=== PATIENT | male | born 1965 | race Caucasian/White ===

== ENCOUNTER 2017-02-14 12:50 | Emergency (ER) | payer MEDICARE, MEDICAID ==
[2017-02-14 12:51] VITALS: BMI 25.7
[2017-02-14 13:00] VITALS: TEMP 97.9; O2SAT 99
[2017-02-14] MEDS ORDERED: Oxycodone/Acetaminophen 5/325 mg Tab PO STA (13:09)
[2017-02-14] MEDS ORDERED: Oxycodone/Acetaminophen 5/325 mg Tab ONE (13:13)
--- NOTE | 2017-02-14 13:24 | C.PDOC ---
History Of Present Illness 51 yr old male with PMHx of HTN, presents to the ER with complain pain and swelling to the left shoulder, after slipping and falling at home 2 days ago. Patient states he took Tylenol 1 time with no relief. Patient states he is unable to move arm without pain. Denies LOC, chest pain, back pain, arm pain, weakness or numbness. Time Seen by Provider: 02/14/17 13:06 Chief Complaint (Nursing): Upper Extremity Problem/Injury History Per: Patient History/Exam Limitations: no limitations Onset/Duration Of Symptoms: Days (2 days ago) Past Medical History Reviewed: Historical Data, Nursing Documentation, Vital Signs Vital Signs: Last Vital Signs Temp 97.9 F 02/14/17 12:59 Pulse 105 H 02/14/17 14:04 Resp 12 02/14/17 14:04 BP 114/81 02/14/17 14:04 Pulse Ox 99 02/14/17 14:05 - Medical History PMH: HTN - [facility] Procedures ALCOHOL DETOXIFICATION (06/15/13) BONE MARROW BIOPSY (06/15/13) CLOSURE SKIN & SUBCUTANEOUS NEC (03/23/14) FUSION/REFUS OF 2-3 VERTEBRAE (06/15/13) OTH CERVICAL FUSION OF POSTERIOR COLUMN, POSTERIOR TECHNIQUE (06/15/13) TETANUS TOXOID ADMINIST (03/23/14) VERTEBRAL FX REPAIR (06/15/13) Family History: States: No Known Family Hx - Social History Hx Tobacco Use: Yes (heavy smoker) Hx Alcohol Use: Yes Hx Substance Use: No - Immunization History Hx Tetanus Toxoid Vaccination: No Hx Influenza Vaccination: No Hx Pneumococcal Vaccination: No Review Of Systems Except As Marked, All Systems Reviewed And Found Negative. Cardiovascular: Negative for: Chest Pain Musculoskeletal: Positive for: Shoulder Pain (Left shoulder pain and swelling ) . Negative for: Arm Pain, Back Pain Neurological: Negative for: Weakness, Numbness Physical Exam - Physical Exam Appears: Well, Non-toxic, No Acute Distress Skin: Warm, Dry, No Rash Head: Atraumatic, Normacephalic Chest: Symmetrical, No Tenderness Cardiovascular: Rhythm Regular, No Murmur Respiratory: Normal Breath Sounds, No Rales, No Rhonchi, No Stridor, No Wheezing Extremity: Tenderness (Left shoulder, tenderness to the anterior and lateral shoulder. Tenderness to the distal clavicle. ), Capillary Refill (<2), Swelling (Left shoulder, moderate swelling. ), Other (Left Shoulder - Unable to abduct arm, secondary to pain. ) Pulses: Left Radial: Normal, Right Radial: Normal Neurological/Psych: Oriented x3, Normal Speech, Normal Motor ED Course And Treatment O2 Sat by Pulse Oximetry: 99 - Other Rad X-Ray - Left Clavicle X-Ray: Viewed By Me, Read By Radiologist Interpretation: PROCEDURE: Radiographs of the left clavicle. HISTORY: pain s.p fall. COMPARISON: None. FINDINGS: LEFT CLAVICLE: There is no clavicular fracture identified. There is comminuted fracture of the left humeral head and neck. Please see report of left shoulder radiograph. JOINTS: The acromioclavicular joint is preserved. There is inferior subluxation at the glenohumeral articulation without evidence of ward dislocation. SOFT TISSUES: Grossly unremarkable. OTHER FINDINGS: None. IMPRESSION: No clavicular fracture. Comminuted fracture left humeral neck and head. Please see report of left shoulder radiograph. X-Ray - Left Shoulder X-Ray: Viewed By Me, Read By Radiologist Interpretation: PROCEDURE: Radiographs of the Left Shoulder. HISTORY: pain s.p fall. COMPARISON: No prior. FINDINGS: BONES: Comminuted transverse subcapital fracture and humeral head, proximal left humerus. No significant displacement. There is some impaction. JOINTS: Inferior subluxation of the humeral head at the glenohumeral articulation without evidence of ward dislocation. SOFT TISSUES: Normal. OTHER FINDINGS: None. IMPRESSION: Comminuted fracture left humeral neck and head with impaction N no significant displacement. Inferior subluxation of left glenohumeral articulation. Medical Decision Making Medical Decision Making: PLAN: * X-Ray - Left Clavicle, Left Shoulder * Percocet PO Progress: Page Dr Bedoya, ortho salmon gillnet vessel operator at [id number] Bedoay calls back and requests contacting MYRON Crump to evaluate patient. He also requests sending images via text. Obtain patient permission and send images 1955 MYRON Crump is in the OR and unable to see patient at this time. [id number] Dr Bedoya requests to have patient put in a sling and discharged home and to follow up in his office tomorrow. Patient placed in arm sling. I explained Xray results and gave instructions on prompt follow up with ortho tomorrow. Patient verbalized understanding. Disposition Counseled Patient/Family Regarding: Need For Followup, Rx Given - Disposition Referrals: Andi Bedoya III, MD [Staff Provider] - [facility] [Outside] [facility] [Outside] Disposition: HOME/ ROUTINE Disposition Time: 13:52 Condition: STABLE Additional Instructions: [place] radiografa muestra fractura al hombro mike Es muy importante que sigas maana en la oficina del ortopedista Dr. Bedoya Mantenga la honda en el b[place] medicamentos para el dolor cuando sea necesario Prescriptions: oxyCODONE/Acetaminophen [Percocet 5/325 mg Tab] 1 tab PO Q6 #20 tab Instructions: Arm Fracture in Adults (ED) - POA Present On Arrival: None - Clinical Impression Clinical Impression: Fracture of humeral head, closed - PA / PRODUCT FINISHER / Resident Statement MD/DO has reviewed & agrees with the documentation as recorded. - Scribe Statement The provider has reviewed the documentation as recorded by the Scribe Janet Kirk All medical record entries made by the Scribe were at my direction and personally dictated by me. I have reviewed the chart and agree that the record accurately reflects my personal performance of the history, physical exam, medical decision making, and the department course for this patient. I have also personally directed, reviewed, and agree with the discharge instructions and disposition.
--- NOTE | 2017-02-14 14:00 | RAD ---
PROCEDURE: Radiographs of the left clavicle. HISTORY: pain s.p fall COMPARISON: None. FINDINGS: LEFT CLAVICLE: There is no clavicular fracture identified. There is comminuted fracture of the left humeral head and neck. Please see report of left shoulder radiograph. JOINTS: The acromioclavicular joint is preserved. There is inferior subluxation at the glenohumeral articulation without evidence of ward dislocation. SOFT TISSUES: Grossly unremarkable. OTHER FINDINGS: None. IMPRESSION: No clavicular fracture. Comminuted fracture left humeral neck and head. Please see report of left shoulder radiograph.
--- NOTE | 2017-02-14 14:01 | RAD ---
PROCEDURE: Radiographs of the Left Shoulder HISTORY: pain s.p fall COMPARISON: No prior. FINDINGS: BONES: Comminuted transverse subcapital fracture and humeral head, proximal left humerus. No significant displacement. There is some impaction. JOINTS: Inferior subluxation of the humeral head at the glenohumeral articulation without evidence of ward dislocation. SOFT TISSUES: Normal. OTHER FINDINGS: None. IMPRESSION: Comminuted fracture left humeral neck and head with impaction N no significant displacement. Inferior subluxation of left glenohumeral articulation.
[2017-02-14 14:06] VITALS: BP 114/81; PULSE 105; RESP 12
== END 2017-02-14 14:05 | disposition home or self-care (01) ==
LOC: C.ER 12:50
DX: S42.292A Other displaced fracture of upper end of left humerus, initial encounter for closed fracture (principal); W01.0XXA Fall on same level from slipping, tripping and stumbling without subsequent striking against object, initial encounter; Y92.009 Unspecified place in unspecified non-institutional (private) residence as the place of occurrence of the external cause; I10 Essential (primary) hypertension; F17.210 Nicotine dependence, cigarettes, uncomplicated

== ENCOUNTER 2017-09-23 22:20 | Emergency (ER) | payer OTHER, MEDICAID ==
[2017-09-23 22:20] VITALS: BMI 25.7
[2017-09-23 22:45] VITALS: RESP 20; O2SAT 97
--- NOTE | 2017-09-24 00:34 | C.PDOC ---
History Of Present Illness 52 year old male well known to the ER presents after drinking an unspecified amount of rum, complaining of back and neck pain. Patient denies not specify any fall or injury but does have a Hx of chronic neck and back issues and prior surgery to cervical spine. Patient is intoxicated and is unable to offer further Hx. Denies fever, SOB, abdominal pain, nausea, or vomiting. Chief Complaint (Nursing): Substance Abuse History Per: Patient History/Exam Limitations: no limitations Onset/Duration Of Symptoms: Hrs Current Symptoms Are (Timing): Still Present Suicide/Self Injury Attempted (Context): None Modifying Factor(s): Alcohol Associated Symptoms: denies: Depression, Suicidal Thoughts, Suicidal Plan Recent travel outside of the [place]: No Past Medical History Reviewed: Historical Data, Nursing Documentation, Vital Signs Vital Signs: Last Vital Signs Temp 98.1 F 09/24/17 03:04 Pulse 96 H 09/24/17 03:04 Resp 20 09/24/17 03:04 BP 105/63 09/24/17 03:04 Pulse Ox 97 09/24/17 06:00 - Medical History PMH: HTN - [facility] Procedures ALCOHOL DETOXIFICATION (06/15/13) BONE MARROW BIOPSY (06/15/13) CLOSURE SKIN & SUBCUTANEOUS NEC (03/23/14) FUSION/REFUS OF 2-3 VERTEBRAE (06/15/13) OTH CERVICAL FUSION OF POSTERIOR COLUMN, POSTERIOR TECHNIQUE (06/15/13) TETANUS TOXOID ADMINIST (03/23/14) VERTEBRAL FX REPAIR (06/15/13) Family History: States: Unknown Family Hx - Social History Hx Tobacco Use: Yes (heavy smoker) Hx Alcohol Use: Yes Hx Substance Use: No - Immunization History Hx Tetanus Toxoid Vaccination: No Hx Influenza Vaccination: No Hx Pneumococcal Vaccination: No Review Of Systems Cardiovascular: Negative for: Chest Pain, Palpitations Respiratory: Negative for: Shortness of Breath Gastrointestinal: Negative for: Abdominal Pain Musculoskeletal: Positive for: Neck Pain, Back Pain Physical Exam - Physical Exam Appears: Non-toxic, Other (Awake, alert, ETOH on breath, slurred speech.) Skin: Warm, Dry Head: Normacephalic (Across left cheek, dried blood), Abrasion Eye(s): bilateral: Normal Inspection Oral Mucosa: Moist Neck: Paracervical Tenderness (Diffuse, no point tenderness), Supple, Other ( Surgical scar on c-spine noted) Chest: Symmetrical, No Tenderness Cardiovascular: Rhythm Regular Respiratory: Normal Breath Sounds, No Rales, No Rhonchi, No Wheezing Gastrointestinal/Abdominal: Soft, No Tenderness Back: No CVA Tenderness, No Vertebral Tenderness, No Paraspinal Tenderness Extremity: Normal ROM (x4), Other (Obvious injuries noted) Neurological/Psych: Oriented x3, Normal Speech, Normal Motor, Normal Sensation, Other (No focal deficits) ED Course And Treatment O2 Sat by Pulse Oximetry: 97 (Room air) Pulse Ox Interpretation: Normal - CT Scan/US CT Head Other Rad Studies (CT/US): Read By Radiologist, Radiology Report Reviewed CT/US Interpretation: EXAM: CT Head Without Intravenous Contrast. EXAM DATE/ TIME: 09/23/2017 11:10 PM. CLINICAL HISTORY: 52 years old, male; Pain; Headache and other: Pain; Patient HX: 07-02-17; Additional info: Trauma. TECHNIQUE: Axial computed tomography images of the head/brain without intravenous contrast. All CT scans at. this facility use one or more dose reduction techniques, viz.: automated exposure control; ma/kV. adjustment per patient size (including targeted exams where dose is matched to indication; i.e. head);. or iterative reconstruction technique. Coronal and sagittal reformatted images were created and reviewed. COMPARISON: CT - HEAD W/O CONTRAST 2016-05-14 00:49. FINDINGS: Brain: There is prominence of sulci gyri and ventricles. There is no midline shift. There is decreased. attenuation in periventricular white matter. There are no focal masses. There are no focal. hemorrhages. Mireles-white differentiation is visualized. Ventricles: See above. Bones: Cranial vault is intact. There are age-indeterminate nasal bone fractures. Soft tissues: There is a right frontal scalp hematoma. Sinuses: There is no acute sinusitis. Ears and mastoids: Middle ears and mastoids are unremarkable. Orbits: Orbital contents are unremarkable. IMPRESSION: Right frontal scalp hematoma, no acute intracranial abnormality; age indeterminate. nasal bone fractures CT Cervical Spine Other Rad Studies (CT/US): Read By Radiologist, Radiology Report Reviewed CT/US Interpretation: EXAM: CT Cervical Spine Without Intravenous Contrast. EXAM DATE/TIME: 09/23/2017 11:10 PM. CLINICAL HISTORY: 52 years old, male; Pain; Neck pain; Patient HX: 10. TECHNIQUE: Axial computed tomography images of the cervical spine without intravenous contrast. All CT scans. at this facility use one or more dose reduction techniques, viz.: automated exposure control; ma/kV. adjustment per patient size (including targeted exams where dose is matched to indication; i.e. head);. or iterative reconstruction technique. Coronal and sagittal reformatted images were created and reviewed. COMPARISON: CR - CERVICAL SPINE COMP W/ F E 2013-09-19 10:50. FINDINGS: Vertebrae: There is maintenance of the cervical lordosis. There is no prevertebral soft tissue. swelling. There are no fractures. There are postsurgical changes of fusion C1/C2. There is streak. artifact from metallic wires. There is fusion of the C2-C3 spinous processes. There are degenerative. changes at multiple levels with small osteophytes and disc space narrowing. Facet joints align. anatomically. Spinous processes align in the expected fashion. Discs/spinal canal/neural foramina: See above. Soft tissues: See above. Thyroid: Lung apices are clearThyroid is unremarkable. Lung apices: See above. IMPRESSION: C1-C2 fusion, no acute abnormality CT Lumbar Spine Other Rad Studies (CT/US): Read By Radiologist, Radiology Report Reviewed CT/US Interpretation: EXAM: CT Lumbar Spine Without Intravenous Contrast. EXAM DATE/TIME: 09/23/2017 11:35 PM. CLINICAL HISTORY: 52 years old, male; Pain; Low back pain. TECHNIQUE: Axial computed tomography images of the lumbar spine without intravenous contrast. All CT scans. at this facility use one or more dose reduction techniques, viz.: automated exposure control; ma/kV. adjustment per patient size (including targeted exams where dose is matched to indication; i.e. head);. or iterative reconstruction technique. Coronal and sagittal reformatted images were created and reviewed. COMPARISON: There are no prior studies for comparison. The. FINDINGS: Vertebrae: There is a mild convex left lumbar curve. There are degenerative changes greatest at the. apex of the curve L23 and L3-L4. T12-L3 vertebral bodies are normal height. There is mild endplate. deformity L4 and L5. There are no wedge compression fractures. Posterior elements are intact at all. levels. Facet joints align anatomically. Spinous processes align in the expected fashion. There is mild. disc bulge at L4-L5 and L5-S1. Sacroiliac joints are patent. Discs/spinal canal /neural foramina: see above. Soft tissues: Psoas and paraspinous muscles are symmetric. Liver: There is fatty infiltration of the liver. IMPRESSION: Degenerative change, no fracture; mild disc bulge at L4-L5 and L5-S1 Medical Decision Making Medical Decision Making: Impression: ETOH dependency, s/p fall with back and neck pain, will order CT cervical spine, CT head, and CT LS spine; if clear will discharge to sober family member. Disposition - Disposition Referrals: [facility] [Outside] Disposition: HOME/ ROUTINE Disposition Time: 06:30 Condition: GOOD Instructions: Cervical Strain (GEN), Head Injury (ED), Alcohol Dependence (ED) Forms: [employer] (Montenegrin) - Clinical Impression Clinical Impression: Alcohol intoxication, Contusion of face, Head injury - Scribe Statement The provider has reviewed the documentation as recorded by the Scribe Provider Attestation: Héctor Dorsey All medical record entries made by the Scribe were at my direction and personally dictated by me. I have reviewed the chart and agree that the record accurately reflects my personal performance of the history, physical exam, medical decision making, and the department course for this patient. I have also personally directed, reviewed, and agree with the discharge instructions and disposition.
--- NOTE | 2017-09-24 01:00 | CT ---
EXAM: CT Cervical Spine Without Intravenous Contrast EXAM DATE/TIME: 09/23/2017 11:10 PM CLINICAL HISTORY: 52 years old, male; Pain; Neck pain; Patient HX: 10-4-13 TECHNIQUE: Axial computed tomography images of the cervical spine without intravenous contrast. All CT scans at this facility use one or more dose reduction techniques, viz.: automated exposure control; ma/kV adjustment per patient size (including targeted exams where dose is matched to indication; i.e. head); or iterative reconstruction technique. Coronal and sagittal reformatted images were created and reviewed. COMPARISON: CR - CERVICAL SPINE COMP W/ F E 2013-09-19 10:50 FINDINGS: Vertebrae: There is maintenance of the cervical lordosis. There is no prevertebral soft tissue swelling. There are no fractures. There are postsurgical changes of fusion C1/C2. There is streak artifact from metallic wires. There is fusion of the C2-C3 spinous processes. There are degenerative changes at multiple levels with small osteophytes and disc space narrowing. Facet joints align anatomically. Spinous processes align in the expected fashion. Discs/spinal canal/neural foramina: See above. Soft tissues: See above. Thyroid: Lung apices are clearThyroid is unremarkable Lung apices: See above. IMPRESSION: C1-C2 fusion, no acute abnormality
--- NOTE | 2017-09-24 01:04 | CT ---
EXAM: CT Head Without Intravenous Contrast EXAM DATE/TIME: 09/23/2017 11:10 PM CLINICAL HISTORY: 52 years old, male; Pain; Headache and other: Pain; Patient HX: 07-02-17; Additional info: Trauma TECHNIQUE: Axial computed tomography images of the head/brain without intravenous contrast. All CT scans at this facility use one or more dose reduction techniques, viz.: automated exposure control; ma/kV adjustment per patient size (including targeted exams where dose is matched to indication; i.e. head); or iterative reconstruction technique. Coronal and sagittal reformatted images were created and reviewed. COMPARISON: CT - HEAD W/O CONTRAST 2016-05-14 00:49 FINDINGS: Brain: There is prominence of sulci gyri and ventricles. There is no midline shift. There is decreased attenuation in periventricular white matter. There are no focal masses. There are no focal hemorrhages. Mireles-white differentiation is visualized. Ventricles: See above. Bones: Cranial vault is intact. There are age-indeterminate nasal bone fractures. Soft tissues: There is a right frontal scalp hematoma Sinuses: There is no acute sinusitis. Ears and mastoids: Middle ears and mastoids are unremarkable. Orbits: Orbital contents are unremarkable. IMPRESSION: Right frontal scalp hematoma, no acute intracranial abnormality; age indeterminate nasal bone fractures
--- NOTE | 2017-09-24 01:12 | CT ---
EXAM: CT Lumbar Spine Without Intravenous Contrast EXAM DATE/TIME: 09/23/2017 11:35 PM CLINICAL HISTORY: 52 years old, male; Pain; Low back pain TECHNIQUE: Axial computed tomography images of the lumbar spine without intravenous contrast. All CT scans at this facility use one or more dose reduction techniques, viz.: automated exposure control; ma/kV adjustment per patient size (including targeted exams where dose is matched to indication; i.e. head); or iterative reconstruction technique. Coronal and sagittal reformatted images were created and reviewed. COMPARISON: There are no prior studies for comparison. The FINDINGS: Vertebrae: There is a mild convex left lumbar curve. There are degenerative changes greatest at the apex of the curve L23 and L3-L4. T12-L3 vertebral bodies are normal height. There is mild endplate deformity L4 and L5. There are no wedge compression fractures. Posterior elements are intact at all levels. Facet joints align anatomically. Spinous processes align in the expected fashion. There is mild disc bulge at L4-L5 and L5-S1. Sacroiliac joints are patent. Discs/spinal canal/neural foramina: see above Soft tissues: Psoas and paraspinous muscles are symmetric. Liver: There is fatty infiltration of the liver. IMPRESSION: Degenerative change, no fracture; mild disc bulge at L4-L5 and L5-S1
[2017-09-24 03:05] VITALS: TEMP 98.1
[2017-09-24 06:46] VITALS: BP 121/78; PULSE 80
== END 2017-09-24 06:25 | disposition home or self-care (01) ==
LOC: C.ER 22:20
DX: F10.129 Alcohol abuse with intoxication, unspecified (principal); S00.83XA Contusion of other part of head, initial encounter; S09.90XA Unspecified injury of head, initial encounter; X58.XXXA Exposure to other specified factors, initial encounter; I10 Essential (primary) hypertension; F17.210 Nicotine dependence, cigarettes, uncomplicated

== ENCOUNTER 2017-12-28 18:49 | Emergency (ER) | payer OTHER, MEDICAID ==
[2017-12-28 18:49] VITALS: BMI 25.7
[2017-12-28 19:05] VITALS: RESP 18
--- NOTE | 2017-12-28 20:23 | C.PDOC ---
History Of Present Illness Patient is 52 y/o male who presents to the ED with complaints of left eye and face swelling s/p falling out of bed after heavy alcohol consumption. Patient denies any visual changes, fever, chills, nausea, or vomiting; admits to drinking daily. Currently speaking in full sentences in ED. No other physical complaints at this time. Time Seen by Provider: 12/28/17 20:23 Chief Complaint (Nursing): Trauma History Per: Patient History/Exam Limitations: no limitations Onset/Duration Of Symptoms: Hrs Current Symptoms Are (Timing): Still Present Severity: Mild Pain Scale Rating Of: 4 Recent travel outside of the [place]: No Past Medical History Reviewed: Historical Data, Nursing Documentation, Vital Signs Vital Signs: Last Vital Signs Temp 99.1 F 12/28/17 22:08 Pulse 100 H 12/28/17 22:08 Resp 18 12/28/17 22:08 BP 114/79 12/28/17 22:08 Pulse Ox 97 12/28/17 22:08 - Medical History PMH: HTN Denies: Chronic Kidney Disease Surgical History: No Surg Hx - [facility] Procedures ALCOHOL DETOXIFICATION (06/15/13) BONE MARROW BIOPSY (06/15/13) CLOSURE SKIN & SUBCUTANEOUS NEC (03/23/14) FUSION/REFUS OF 2-3 VERTEBRAE (06/15/13) OTH CERVICAL FUSION OF POSTERIOR COLUMN, POSTERIOR TECHNIQUE (06/15/13) TETANUS TOXOID ADMINIST (03/23/14) VERTEBRAL FX REPAIR (06/15/13) Family History: States: No Known Family Hx - Social History Hx Tobacco Use: Yes (heavy smoker) Hx Alcohol Use: Yes Hx Substance Use: No - Immunization History Hx Tetanus Toxoid Vaccination: No Hx Influenza Vaccination: No Hx Pneumococcal Vaccination: No Review Of Systems Constitutional: Negative for: Fever, Chills Eyes: Positive for: Other (left eye swelling). Negative for: Vision Change Respiratory: Positive for: Other (speaking in complete sentences) Gastrointestinal: Negative for: Nausea, Vomiting Skin: Positive for: Other (swelling to left side of face) Physical Exam - Physical Exam Appears: Well, Non-toxic, No Acute Distress Skin: Warm, Dry, Ecchymosis (over left forehead and left cheek) Eye(s): bilateral: Normal Inspection, PERRL, EOMI, left: Other (diffuse tenderness to left orbit; negative crepitus; conjunctivas clear bilaterally) Oral Mucosa: Moist Neck: Supple Chest: Symmetrical Cardiovascular: Rhythm Regular, No Murmur Respiratory: No Decreased Breath Sounds, No Rales, No Rhonchi, No Wheezing Gastrointestinal/Abdominal: Soft, No Tenderness Back: No CVA Tenderness Extremity: Normal ROM Extremity: Bilateral: Atraumatic Pulses: Left Dorsalis Pedis: Normal, Right Dorsalis Pedis: Normal Neurological/Psych: Oriented x3, Normal Speech, Normal Cognition Gait: Steady ED Course And Treatment O2 Sat by Pulse Oximetry: 95 Pulse Ox Interpretation: Normal Progress Note: Head CT and Orbit/facial CT ordered. Reevaluation Time: 23:43 Reassessment Condition: Improved Disposition Counseled Patient/Family Regarding: Studies Performed, Diagnosis, Need For Followup - Disposition Referrals: [facility] [Outside] [facility] [Outside] Disposition: HOME/ ROUTINE Disposition Time: 20:23 Condition: FAIR Instructions: Eye Contusion (DC), Contusion (DC), Minor Head Injury (DC), Taking Care of Bruises Forms: [employer] (Uzbek) - Clinical Impression Clinical Impression: Alcohol abuse, Facial contusion - Scribe Statement The provider has reviewed the documentation as recorded by the Scribe Cheryl Shirley All medical record entries made by the Scribe were at my direction and personally dictated by me. I have reviewed the chart and agree that the record accurately reflects my personal performance of the history, physical exam, medical decision making, and the department course for this patient. I have also personally directed, reviewed, and agree with the discharge instructions and disposition.
--- NOTE | 2017-12-28 23:39 | CT ---
EXAM: CT Orbits Without Intravenous Contrast EXAM DATE/TIME: 12/28/2017 8:25 PM CLINICAL HISTORY: 52 years old, male; Injury or trauma; Fall; Initial encounter; Abrasion; Eyelid; Upper left TECHNIQUE: Axial computed tomography images of the orbits without intravenous contrast. All CT scans at this facility use one or more dose reduction techniques, viz.: automated exposure control; ma/kV adjustment per patient size (including targeted exams where dose is matched to indication; i.e. head); or iterative reconstruction technique. Coronal and sagittal reformatted images were created and reviewed. COMPARISON: CT - HEAD W/O CONTRAST 2015-08-02 01:48 FINDINGS: There is subcutaneous soft tissue swelling/subcutaneous hematoma in the frontal, left orbital, and nasal regions. Nasal bone fractures age indeterminate. Nasal bone fractures were described on recent September 2017 prior report, however no images were provided for direct correlation. Mild mucosal thickening in the ethmoid sinuses. Chronic appearing deformity of the left zygomatic arch. Chronic appearing anterior inferior dislocation of the left mandibular head. IMPRESSION: Nasal bone fractures age indeterminate. Nasal bone fractures were described on recent September 2017 prior report, however no images were provided for direct correlation.
--- NOTE | 2017-12-28 23:45 | CT ---
EXAM: CT Head Without Intravenous Contrast EXAM DATE/TIME: 12/28/2017 8:25 PM CLINICAL HISTORY: 52 years old, male; Injury or trauma; Fall; Initial encounter; Abrasion; Eye and face; Left TECHNIQUE: Axial computed tomography images of the head/brain without intravenous contrast. All CT scans at this facility use one or more dose reduction techniques, viz.: automated exposure control; ma/kV adjustment per patient size (including targeted exams where dose is matched to indication; i.e. head); or iterative reconstruction technique. COMPARISON: CT - HEAD W/O CONTRAST 2015-08-02 01:48 FINDINGS: There is subcutaneous soft tissue swelling/subcutaneous hematoma in the frontal region and left orbital region. Atrophy. No intracranial hemorrhage. No intracranial edema. No fluid in the sinuses or mastoid air cells. Chronic appearing inward deformity of the left zygomatic arch and chronic appearing anterior inferior dislocation of the left mandibular head. IMPRESSION: No acute intracranial injury.
[2017-12-29 00:03] VITALS: BP 146/88; PULSE 102; TEMP 99; O2SAT 97
== END 2017-12-29 00:14 | disposition home or self-care (01) ==
LOC: C.ER 18:49
DX: S00.83XA Contusion of other part of head, initial encounter (principal); W06.XXXA Fall from bed, initial encounter; F10.10 Alcohol abuse, uncomplicated; Y90.9 Presence of alcohol in blood, level not specified